=== PATIENT | female | born 1960 | race Caucasian/White ===

== ENCOUNTER 2018-06-18 09:29 | Inpatient (IN) ==
[2018-06-11 18:11] LABS: Appearance,Urine CLEAR; Bacteria,Urine 0 /hpf (0); Bilirubin,Urine NEG (NEG); Color,Urine COLORLESS; Glucose,Urine (UA) NEGATIVE (NEG); Leukocyte Esterase,Urine 75 /uL (NEG); Protein,Urine NEG (NEG); Specific Gravity,Urine 1.001 (1.000-1.035); Urine Blood NEG mg/dL (<0.03); Urine RBC 1 /hpf (0-1); Urine Squamous Epithelial Cell 0 /hpf (0-4); Urine WBC 0 /hpf (0-4); Urobilinogen,Urine NEG (NEG)
[2018-06-11 19:26] LABS: Basophils # (Auto) 0.1 K/mcL (0.0-0.3); Basophils % (Auto) 0.6 % (0.0-2.0); Eosinophils # (Auto) 0.1 K/mcL (0.0-0.7); Eosinophils % (Auto) 1.3 % (0.0-7.0); Granulocytes % (Auto) 65.5 % (38.0-78.0); Lymphocytes # (Auto) 2.2 K/mcL (1.5-4.8); Lymphocytes % (Auto) 23.9 % (15.5-49.0); Mean Cell Volume 89.5 fL (80.0-100.0); Mean Corpuscular HGB Conc 34.2 g/dL (31.0-36.0); Mean Corpuscular Hemoglobin 30.7 pg (26.0-34.0); Monocytes # (Auto) 0.8 K/mcL (0.1-0.9); Monocytes % (Auto) 8.7 % (1.0-12.0); Platelet Count 417 K/mcL (140-440); RBC 3.74 M/mcL (4.00-5.20); Red Cell Distribution Width 14.2 % (11.5-14.5)
[2018-06-11 19:37] LABS: Blood Urea Nitrogen 18 mg/dl (6-20)
[~2018-06-18 09:29] MED LIST: 0.9 % SODIUM CHLORIDE 9 ML, KETOROLAC 30 MG, ROPIVACAINE HCL/PF 49.5 ML, EPINEPHrine 0.... IJ SCH; ceFAZolin 1 GM VIAL IV SCH
[2018-06-18] MEDS ORDERED: ROPIVACAINE HCL/PF 30 ML VIAL IJ ONE (15:05)
[2018-06-18] MEDS ORDERED: ONDANSETRON 4 MG/2 ML VIAL IV ONE (15:05)
[2018-06-18] MEDS ORDERED: MIDAZOLAM 2 MG/2 ML VIAL IV ONE (15:05)
[2018-06-18] MEDS ORDERED: KETAMINE 100 MG/ML ML IV ONE (15:05)
[2018-06-18] MEDS ORDERED: TRANEXAMIC ACID 1,000 MG/10 ML VIAL IV ONE ×2 (15:05→16:38)
[2018-06-18] MEDS ORDERED: PROPOFOL 200 MG/20 ML VIAL IV ONE (15:05)
[2018-06-18] MEDS ORDERED: GLYCOPYRROLATE 0.2 MG/ML VIAL IV ONE (15:05)
[2018-06-18] MEDS ORDERED: LIDOCAINE HCL/PF 100 MG/5 ML SYRINGE IV ONE (15:05)
[2018-06-18] MEDS ORDERED: GENTAMICIN SULFATE 800 MG/20 ML VIAL IR ONE (15:59)
[2018-06-18] MEDS ORDERED: BENZOCAINE/MENTHOL 1 LOZENGE PO PRN (16:38)
[2018-06-18] MEDS ORDERED: ONDANSETRON 4 MG/2 ML VIAL IV PRN (16:38)
[2018-06-18] MEDS ORDERED: FLEETS ADULT ENEMA PR PRN (16:38)
[2018-06-18] MEDS ORDERED: BISACODYL 10 MG SUPP.RECT PR PRN (16:38)
[2018-06-18] MEDS ORDERED: POLYETHYLENE GLYCOL 3350 17 GM PACKET PO PRN (16:38)
[2018-06-18] MEDS ORDERED: MAGNESIUM HYDROXIDE 30 ML ORAL.SUSP PO PRN (16:38)
--- NOTE | 2018-06-18 16:44 | Brief Operative Note ---
Date of procedure: 06/18/18 Pre-op diagnosis: djd right knee Post-op diagnosis: same Procedure: r tkr Grafts/Implants: Yes (Attlani Thomson RP) Anesthesia: DOC Surgeon: Lyle Medina Clod Puller: Jh Rueda Estimated blood loss (cc): 50 Tourniquet Time (Minutes): 55 Specimens Removed/Pathology: none sent Condition: stable Disposition: floor
[2018-06-18] MEDS ORDERED: MEPERIDINE 25 MG/ML SYRINGE IV PRN (16:54)
[2018-06-18] MEDS ORDERED: IPRATROPIUM/ALBUTEROL 3 ML AMPUL.NEB NEB PRN (16:54)
[2018-06-18] MEDS ORDERED: fentaNYL 100 MCG/2 ML VIAL IV PRN (16:54)
[2018-06-18] MEDS ORDERED: PROMETHAZINE 25 MG/ML VIAL IV PRN (16:54)
[2018-06-18] MEDS ORDERED: METHOCARBAMOL 1,000 MG/10 ML VIAL IV PRN (16:54)
[2018-06-18] MEDS ORDERED: ACETAMINOPHEN 1,000 MG/100 ML BOTTLE IV ONE (16:54)
[2018-06-18] MEDS ORDERED: LACTATED RINGERS 1,000 ML IV SCH (17:00)
--- NOTE | 2018-06-18 17:36 | XRay Report ---
CLINICAL INFORMATION: Postoperative left knee TECHNIQUE: AP, lateral, patellar view COMPARISON: None. FINDINGS: Previous left total knee arthroplasty. Prosthetic components are in anatomic positions. There is postsurgical soft tissue and intra-articular gas. There are anterior skin kylah IMPRESSION: Status post left total knee arthroplasty Interpreted and Authenticated by: Samson Lackey 06/18/18
[2018-06-18] MEDS: 0.9 % SODIUM CHLORIDE 1,000 ML IV SCH (18:43)
[2018-06-18] MEDS: metFORMIN 500 MG TABLET PO SCH (19:03)
[2018-06-18] MEDS: BENZTROPINE 1 MG TABLET PO SCH (20:25)
[2018-06-18] MEDS: ASPIRIN 325 MG ENTERIC COATED TABLET PO SCH (20:26)
[2018-06-18] MEDS: SODIUM CHLORIDE 1 GM TABLET PO SCH (20:26)
[2018-06-18] MEDS: DOCUSATE SODIUM 100 MG CAPSULE PO SCH (20:26)
[2018-06-18] MEDS: carBAMazepine 200 MG TABLET PO SCH (20:26)
[2018-06-18] MEDS: traZODone HCL 150 MG TABLET PO SCH (20:26)
[2018-06-18] MEDS: GABAPENTIN 300 MG CAPSULE PO SCH (20:27)
[2018-06-18] MEDS: SIMVASTATIN 20 MG TABLET PO SCH (20:27)
[2018-06-18] MEDS: SENNOSIDES 1 TABLET PO SCH (20:27)
[2018-06-18] MEDS: FAMOTIDINE 20 MG TABLET PO SCH (20:27)
[2018-06-18] MEDS: 0.9 % SODIUM CHLORIDE 10 ML SYRINGE IV SCH (20:29)
[2018-06-18] MEDS: ceFAZolin 1 GM VIAL IV SCH (23:51)
[2018-06-19] MEDS: HYDROCODONE/APAP 7.5/325MG TABLET PO PRN ×4 (01:20→18:48)
[2018-06-19] MEDS: 0.9 % SODIUM CHLORIDE 10 ML SYRINGE IV SCH ×2 (04:50→14:10)
[2018-06-19] MEDS: 0.9 % SODIUM CHLORIDE 1,000 ML IV SCH ×2 (04:51→11:42)
[2018-06-19] MEDS: ceFAZolin 1 GM VIAL IV SCH (06:49)
--- NOTE | 2018-06-19 07:33 | Orthopedic Progress Note ---
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 Chief Complaint: [] Interval history: Patient is POD from Left total knee arthroplasty and doing well, pain is well controlled. She denies any numbness/tingling, or any other acute symptoms at this time. Objective Vital signs: Vital Signs Temp Pulse Resp BP Pulse Ox 06/19/18 04:00 98.6 F 70 18 152/73 96 06/19/18 00:00 97.6 F 66 18 172/73 97 06/18/18 21:00 97.4 F 70 16 162/88 99 06/18/18 20:43 81 197/82 99 06/18/18 20:27 68 178/89 100 06/18/18 20:12 68 181/80 100 06/18/18 19:57 70 181/91 100 06/18/18 19:42 68 183/93 100 06/18/18 19:28 64 172/67 98 06/18/18 19:13 69 172/67 99 06/18/18 18:30 16 172/81 99 06/18/18 18:05 97.4 F 16 168/79 98 06/18/18 17:48 97.5 F 70 20 158/55 100 06/18/18 17:38 70 17 154/76 100 06/18/18 17:33 72 20 121/97 100 06/18/18 17:18 78 16 135/75 100 06/18/18 17:03 97.0 F 69 18 123/52 92 06/18/18 09:29 97.4 F 80 16 178/95 97 Intake and Output 06/18/18 06/19/18 06/19/18 21:59 05:59 13:59 Intake Total 2400 / 2400 700 / 700 1000 / 1000 Output Total 1150 / 1150 1025 / 1025 Balance 1250 / 1250 -325 / -325 1000 / 1000 Intake: IV 100 / 100 1000 / 1000 Sodium Chloride 0.9% 1,000 ml @ 1000 / 1000 100 mls/hr IV .Q10H [facility] Rx#: [id number] Oral 700 / 700 IV - Manual Only 2300 / 2300 Output: Urine Catheter Amount 150 / 150 Void Amount 850 / 850 1025 / 1025 Emesis 50 / 50 Estimated Blood Loss 100 / 100 Other: Meal Jello & fruit cup Percent of Meal Consumed 100% Feeding Ability Independent Urine Appearance Clear Urine Color Pale Urine Odor Normal # Voids 1 Weight 209 lb 3.2 oz Intake & Output: Intake & Output 06/18/18 06/19/18 06/19/18 21:59 05:59 13:59 Intake Total 2400 / 2400 700 / 700 1000 / 1000 Output Total 1150 / 1150 1025 / 1025 Balance 1250 / 1250 -325 / -325 1000 / 1000 Weight 209 lb 3.2 oz Intake: IV 100 / 100 1000 / 1000 Sodium Chloride 0.9% 1,000 ml @ 1000 / 1000 100 mls/hr IV .Q10H [facility] Rx#: [id number] Oral 700 / 700 IV - Manual Only 2300 / 2300 Output: Urine Catheter Amount 150 / 150 Void Amount 850 / 850 1025 / 1025 Emesis 50 / 50 Estimated Blood Loss 100 / 100 Other: Meal Jello & fruit cup Percent of Meal Consumed 100% Feeding Ability Independent Urine Appearance Clear Urine Color Pale Urine Odor Normal # Voids 1 Dressing: Yes clean, Yes dry, Yes intact Neurological exam IM: Yes neurovascular intact Extremities exam IM: No calf tenderness, Yes Foot pink and warm Additional Comments: able to do a SLR, able to dorsiflex foot. - Labs CBC & BMP: 06/19/18 04:10 06/11/18 16:38 Labs: Orthopedic Labs 06/11/18 16:38 PT 12.9 INR 1.0 06/19/18 06/11/18 04:10 16:38 Hgb 9.7 L 11.5 L Hct 28.4 L 33.5 L Assessment and Plan (1) Status post total left knee replacement PT for knee ROM and ambulation continue pain management discharge planning for POD 3 to [facility] bed Status: Acute
--- NOTE | 2018-06-19 07:41 | Operative Note ---
DATE OF OPERATION: 06/18/2018 PREOPERATIVE DIAGNOSIS: Degenerative joint disease of the left knee. POSTOPERATIVE DIAGNOSIS: Degenerative joint disease of the left knee. OPERATION: Left total knee replacement. SURGEON: Lyle Medina MD WEIGHER BULKER: Jh Rueda PA-C ANESTHESIA: General done by Dr. Curtis. TOURNIQUET TIME: 55 minutes. ESTIMATED BLOOD LOSS: 50 mL SUMMARY OF PROCEDURE: General anesthesia was attained. The left leg was prepped and draped. A thigh-level tourniquet was put up. A midline incision was made from the quadriceps to the tibial tubercle. It was taken down sharply through the subcutaneous fat. The quadriceps was approached with a mid vastus approach. The medial retinaculum was split as well. A medial release was done using a Cross elevator. The fat pad was debrided. The anterior menisci were resected. The ACL was resected. The periosteum and synovium was elevated from the anterior femur. The intramedullary canal of the femur was drilled. The distal cut was made using the guide system. I added 2 mm to the distal cut as the patient had a flexion contracture of about 10 degrees. We then addressed the tibia. The knee was flexed. The intramedullary canal was drilled and then reamed. The proximal guide was placed. The cut was made 4 mm below the low point medially. We then used spaces to confirm balanced flexion and extension gap. The femur sized to a 6. The anterior, posterior and bevel cuts were made. The tibia sized to a 6 as well. The rotation was adjusted to maximize patellar tracking. The tibia was next drilled and then broached. The patella was everted. A measured resection was done of the patellar bringing it from 21 to 13 mm in thickness. The patella sized to a 35. There was some extra bone laterally and this was removed with a saw. Trial components were placed. The best combination of stability with a full range of motion was with a 7 mm trial insert. The bone surfaces were irrigated throughout. The knee was infiltrated with poly mobile solution for postoperative analgesia. The components were cemented in. Excess cement was removed. The knee was left in extension as the cement cured. Tourniquet was let down. All bleeding points were coagulated. The split in the quadriceps tendon was closed with [id number] sutures of #2 FiberWire as was the medial retinaculum. A second reinforcing layer was then done of a running 0 Maxon. The subcutaneous tissue was closed with interrupted buried 2-0 Monocryl. The skin was closed with Dermabond. A sterile compressive dressing was applied. The sponge and needle count was correct. The patient tolerated the procedure well and was taken to the recovery room in stable condition. TJF:alton Job ID: [id number] Doc ID: [id number] Lyle Medina MD
[2018-06-19] MEDS: metFORMIN 500 MG TABLET PO SCH ×2 (09:19→17:09)
[2018-06-19] MEDS: SODIUM CHLORIDE 1 GM TABLET PO SCH ×2 (09:19→21:06)
[2018-06-19] MEDS: amLODIPine 10 MG TABLET PO SCH (09:20)
[2018-06-19] MEDS: SERTRALINE 50 MG TABLET PO SCH (09:20)
[2018-06-19] MEDS: DOCUSATE SODIUM 100 MG CAPSULE PO SCH ×2 (09:20→21:06)
[2018-06-19] MEDS: ASPIRIN 325 MG ENTERIC COATED TABLET PO SCH ×2 (09:20→21:06)
[2018-06-19] MEDS: GABAPENTIN 300 MG CAPSULE PO SCH ×3 (09:20→21:07)
[2018-06-19] MEDS: lamoTRIgine 100 MG TABLET PO SCH (09:20)
[2018-06-19] MEDS: carBAMazepine 200 MG TABLET PO SCH ×2 (09:20→21:07)
[2018-06-19] MEDS: BENZTROPINE 1 MG TABLET PO SCH ×2 (09:21→21:07)
[2018-06-19] MEDS: LISINOPRIL 10 MG TABLET PO SCH (09:21)
--- NOTE | 2018-06-19 10:51 | Discharge Summary ---
Ortho Discharge - TKA - Patient Instructions Diet: Regular Diet Activity: activity as tolerated Total Knee Protocol: For Total Knee: Start ROM RAN with stationary bike or rocking chair. Work on gaining full extension of knee. Posterior dislocation precautions provided. Hip abductor strengthening and gait training instructions provided. Apply Cryocuff as instructed. Dressing Care: May shower in 3 days - Follow Up Plan Follow Up Appointments: Jh Rueda PA-C [Physician [employer] Technician] - 07/01/18 3:10 pm Disposition: [facility] Bed Prognosis: Good Rehab Potential: Good I certify that the patient requires SNF services: No Overall status at discharge: patient is not back to baseline - Orders For Discharge Prescriptions: Aspirin [Ecotrin] 325 mg PO BID #60 tab.ec Hydrocodone/APAP 7.5/325Mg [[place] 7.5-325Mg] 7.5 mg PO Q4HP PRN #40 tab PRN Reason: Pain Level 3-6
[2018-06-19] MEDS: SENNOSIDES 1 TABLET PO SCH (21:06)
[2018-06-19] MEDS: FAMOTIDINE 20 MG TABLET PO SCH (21:06)
[2018-06-19] MEDS: traZODone HCL 150 MG TABLET PO SCH (21:06)
[2018-06-19] MEDS: SIMVASTATIN 20 MG TABLET PO SCH (21:06)
[2018-06-20] MEDS: HYDROCODONE/APAP 7.5/325MG TABLET PO PRN ×4 (00:34→20:08)
[2018-06-20] MEDS: metFORMIN 500 MG TABLET PO SCH ×2 (07:18→17:01)
--- NOTE | 2018-06-20 08:06 | Orthopedic Progress Note ---
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 Chief Complaint: [S/P left TKA] Patient is emotional with conversation. She complains of left knee pain but denies any calf tenderness, SOA, or chest pain. Ambulation has been limited. Objective Vital signs: Vital Signs Temp Pulse Resp BP BP Pulse Ox 06/20/18 07:20 96 06/20/18 07:04 98.6 F 20 163/85 97 06/20/18 03:30 98.1 F 80 20 109/65 95 06/20/18 00:35 98.6 F 79 20 164/69 96 06/19/18 18:45 98.4 F 81 16 147/75 96 06/19/18 16:21 98.7 F 16 154/68 97 06/19/18 11:04 98.3 F 18 167/81 97 Intake and Output 06/19/18 06/20/18 06/20/18 21:59 05:59 13:59 Intake Total 800 / 800 450 / 450 Output Total 500 / 500 1175 / 1175 Balance 300 / 300 -725 / -725 Intake: Oral 800 / 800 450 / 450 Output: Void Amount 500 / 500 1175 / 1175 Other: Urine Appearance Clear Urine Color Pale Urine Odor Normal Stool Size Large Stool Color Brown Stool Consistency Soft Formed # Voids 1 # Bowel Movements 1 Weight 208 lb 3.2 oz Intake & Output: Intake & Output 06/19/18 06/20/18 06/20/18 21:59 05:59 13:59 Intake Total 800 / 800 450 / 450 Output Total 500 / 500 1175 / 1175 Balance 300 / 300 -725 / -725 Weight 208 lb 3.2 oz Intake: Oral 800 / 800 450 / 450 Output: Void Amount 500 / 500 1175 / 1175 Other: Urine Appearance Clear Urine Color Pale Urine Odor Normal Stool Size Large Stool Color Brown Stool Consistency Soft Formed # Voids 1 # Bowel Movements 1 Incision: Yes healing, Yes clean and dry Incision clean and dry: Yes Dressing: Yes clean, Yes dry, Yes intact Weight bearing status: full Neurological exam IM: Yes motor sensory intact, Yes neurovascular intact Extremities exam IM: Yes calf tenderness (Negative), Yes Td's sign (Negative bilaterally), Yes Foot pink and warm, Yes neurovascular intact - Labs CBC & BMP: 06/20/18 03:55 06/11/18 16:38 Labs: Orthopedic Labs 06/11/18 16:38 PT 12.9 INR 1.0 06/20/18 06/19/18 06/11/18 03:55 04:10 16:38 Hgb 9.6 L 9.7 L 11.5 L Hct 28.6 L 28.4 L 33.5 L Assessment and Plan (1) Status post total left knee replacement Ambulate and PT today. Likely discharge to home tomorrow vs SNF. Consult drug abuse social worker and Dr. Medina regarding SNF. Status: Acute
[2018-06-20] MEDS: ASPIRIN 325 MG ENTERIC COATED TABLET PO SCH ×2 (08:23→20:09)
[2018-06-20] MEDS: SERTRALINE 50 MG TABLET PO SCH (08:23)
[2018-06-20] MEDS: LISINOPRIL 10 MG TABLET PO SCH (08:24)
[2018-06-20] MEDS: DOCUSATE SODIUM 100 MG CAPSULE PO SCH ×2 (08:24→20:08)
[2018-06-20] MEDS: amLODIPine 10 MG TABLET PO SCH (08:25)
[2018-06-20] MEDS: lamoTRIgine 100 MG TABLET PO SCH (08:26)
[2018-06-20] MEDS: GABAPENTIN 300 MG CAPSULE PO SCH ×3 (08:26→20:08)
[2018-06-20] MEDS: SODIUM CHLORIDE 1 GM TABLET PO SCH ×2 (08:27→20:09)
[2018-06-20] MEDS: BENZTROPINE 1 MG TABLET PO SCH ×2 (08:32→20:10)
[2018-06-20] MEDS: carBAMazepine 200 MG TABLET PO SCH ×2 (08:32→20:10)
[2018-06-20] MEDS: FAMOTIDINE 20 MG TABLET PO SCH (20:08)
[2018-06-20] MEDS: SIMVASTATIN 20 MG TABLET PO SCH (20:09)
[2018-06-20] MEDS: traZODone HCL 150 MG TABLET PO SCH (20:09)
[2018-06-20] MEDS: SENNOSIDES 1 TABLET PO SCH (20:09)
[2018-06-21] MEDS: HYDROCODONE/APAP 7.5/325MG TABLET PO PRN (04:04)
--- NOTE | 2018-06-21 08:10 | Orthopedic Progress Note ---
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 Chief Complaint: [S/P left TKA] Patient is doing well and anxious to return home. No particular complaints today. She denies any chest pain, SOA, or calf tenderness. Objective Vital signs: Vital Signs Temp Pulse Resp BP Pulse Ox 06/21/18 07:15 98.1 F 16 163/83 98 06/21/18 03:40 98.3 F 71 16 145/80 96 06/21/18 00:30 20 06/20/18 20:10 99.7 F H 85 16 154/83 94 06/20/18 16:00 99.1 F H 18 184/72 95 06/20/18 12:00 98.6 F 20 153/78 97 Intake and Output 06/20/18 06/21/18 06/21/18 21:59 05:59 13:59 Intake Total 1340 / 1340 100 / 100 Output Total 850 / 850 675 / 675 Balance 490 / 490 -575 / -575 Intake: Oral 1340 / 1340 100 / 100 Output: Void Amount 850 / 850 675 / 675 Other: Meal Dinner Percent of Meal Consumed 100% Feeding Ability Independent Urine Appearance Clear Clear Urine Color Pale Pale Bright Yellow Urine Odor Normal Normal Weight 198 lb 9.6 oz Intake & Output: Intake & Output 06/20/18 06/21/18 06/21/18 21:59 05:59 13:59 Intake Total 1340 / 1340 100 / 100 Output Total 850 / 850 675 / 675 Balance 490 / 490 -575 / -575 Weight 198 lb 9.6 oz Intake: Oral 1340 / 1340 100 / 100 Output: Void Amount 850 / 850 675 / 675 Other: Meal Dinner Percent of Meal Consumed 100% Feeding Ability Independent Urine Appearance Clear Clear Urine Color Pale Pale Bright Yellow Urine Odor Normal Normal Incision: Yes healing, Yes clean and dry Incision clean and dry: Yes Dressing: Yes clean, Yes dry, Yes intact Weight bearing status: full Neurological exam IM: Yes alert, Yes oriented X3, Yes motor sensory intact, Yes neurovascular intact Extremities exam IM: Yes calf tenderness (negative), Yes Td's sign (negative) , Yes Foot pink and warm, Yes neurovascular intact - Labs CBC & BMP: 06/21/18 04:30 06/11/18 16:38 Labs: Orthopedic Labs 06/11/18 16:38 PT 12.9 INR 1.0 06/21/18 06/20/18 06/19/18 04:30 03:55 04:10 Hgb 9.1 L 9.6 L 9.7 L Hct 26.8 L 28.6 L 28.4 L 06/11/18 16:38 Hgb 11.5 L Hct 33.5 L Assessment and Plan (1) Status post total left knee replacement Ambulate and PT today. Discharge to home today. Status: Acute
[2018-06-21] MEDS: BENZTROPINE 1 MG TABLET PO SCH (09:45)
[2018-06-21] MEDS: lamoTRIgine 100 MG TABLET PO SCH (09:45)
[2018-06-21] MEDS: carBAMazepine 200 MG TABLET PO SCH (09:45)
[2018-06-21] MEDS: GABAPENTIN 300 MG CAPSULE PO SCH (09:45)
[2018-06-21] MEDS: LISINOPRIL 10 MG TABLET PO SCH (09:46)
[2018-06-21] MEDS: metFORMIN 500 MG TABLET PO SCH (09:46)
[2018-06-21] MEDS: SODIUM CHLORIDE 1 GM TABLET PO SCH (09:46)
[2018-06-21] MEDS: amLODIPine 10 MG TABLET PO SCH (09:47)
[2018-06-21] MEDS: ASPIRIN 325 MG ENTERIC COATED TABLET PO SCH (09:47)
[2018-06-21] MEDS: SERTRALINE 50 MG TABLET PO SCH (09:47)
[2018-06-21] MEDS: DOCUSATE SODIUM 100 MG CAPSULE PO SCH (09:47)
== END 2018-06-21 14:27 | disposition other institution (70) | DRG 470 ==
LOC: MEDSUR 09:29
PROVIDERS: ADMIT Orthopaedic Surgery Foot and Ankle Surgery; ATTEND Orthopaedic Surgery Foot and Ankle Surgery